=== PATIENT | female | born 1960 | race Caucasian/White ===

== ENCOUNTER 2016-05-26 23:33 | Emergency (ER) | payer OTHER ==
[2016-05-27 00:15] VITALS: TEMP 98.2; O2SAT 97
[2016-05-27] MEDS ORDERED: ALUMINUM & MAGNESIUM HYDROXIDE 30 ML UD PO ONE (00:48)
--- NOTE | 2016-05-27 00:49 | ED.PDOC ---
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 SHE WOULD LIKE MAALOX FOR HER STOMACH BUT NO M.O.M. SINCE SHE IS ALLERGIC TO IT. - History of Present Illness Severity: mild Allergies/Adverse Reactions: Allergies Codeine Allergy (Unknown, Verified 03/02/15 23:43) LISTED ADM. 06/04/13@1845 Digoxin Allergy (Unknown, Verified 03/02/15 23:43) LISTED ADM.06/04/13@1845 Flu Virus Vaccine Allergy (Unknown, Verified 03/02/15 23:43) LISTED ADM.06/04/13@1845 Pneumococcal Vaccine Allergy (Unknown, Verified 03/02/15 23:43) LISTED ADM.06/04/13@1845 Acetaminophen [From Vicodin] Allergy (Verified 03/02/15 23:43) Aspirin [From Acetaminophen Fortified] Allergy (Verified 03/02/15 23:43) Caffeine [From Acetaminophen Fortified] Allergy (Verified 03/02/15 23:43) Esomeprazole [From Nexium] Allergy (Verified 03/02/15 23:43) Hydrocodone [From Vicodin] Allergy (Verified 03/02/15 23:43) Ibuprofen Allergy (Verified 03/02/15 23:43) NSAIDs Allergy (Verified 06/03/12 08:27) Opium Allergy (Verified 06/03/12 08:27) Anaphylaxis Prednisone Allergy (Verified 06/03/12 08:27) Tolmetin Allergy (Verified 06/03/12 08:27) Pantoprazole [From Protonix] Adverse Reaction (Verified 10/28/13 06:04) cyclobenzoprine Allergy (Uncoded 05/04/12 17:34) Home Medications: Ambulatory Orders Acyclovir [Zovirax] 400 mg PO QID #28 tab 10/28/13 Lyrica 04/16/15 Review of Systems - Review of Systems Constitutional: States: no symptoms reported EENTM: States: no symptoms reported Respiratory: States: no symptoms reported Cardiology: States: no symptoms reported. Denies: chest pain, palpitations Gastrointestinal/Abdominal: States: other - DYSPEPSIA. Denies: abdominal pain, constipation, diarrhea, nausea, vomiting Genitourinary: States: no symptoms reported Musculoskeletal: States: no symptoms reported Skin: States: no symptoms reported Neurological: States: no symptoms reported Endocrine: States: no symptoms reported Hematologic/Lymphatic: States: no symptoms reported All other Systems: Reviewed and Negative Past Medical History (General) - Patient Medical History Hx Stroke: No Hx Cardiac Disorders: Yes Hx Congestive Heart Failure: No Hx Pacemaker: No Hx Hypertension: Yes Hx Diabetes: No Hx Gastroesophageal Reflux: Yes Hx Cancer: No Hx MRSA: No Surgical History: cholecystectomy, Hysterectomy - Vaccination History Hx Tetanus, Diphtheria Vaccination: No Hx Influenza Vaccination: No Hx Pneumococcal Vaccination: No - Social History Hx Tobacco Use: No Hx Alcohol Use: No Hx Substance Use: No Hx Substance Use Treatment: No Hx Depression: No Hx Physical Abuse: No Hx Emotional Abuse: No - Female History Patient is a Female of Child Bearing Age (10 -59 yrs old): No Patient : No - Triage Comment ED Triage Comment: told her to take tumeric powder, used it this am, and thinks that could be causing some of her reflux problems Family Medical History - Family History Father Family History: No Known Living Status: Hx Family;Other: both of my parents had heart problems Physical Exam - Physical Exam General Appearance: Alert, No apparent distress Eye Exam: bilateral normal Ears, Nose, Throat: hearing grossly normal, normal ENT inspection Neck: non-tender, full range of motion Respiratory: chest non-tender, lungs clear Cardiovascular/Chest: normal peripheral pulses, regular rate, rhythm Peripheral Pulses: radial,right: 2+, radial,left: 2+ Gastrointestinal/Abdominal: normal bowel sounds, soft Extremity: normal range of motion, non-tender Neurologic: no motor/sensory deficits, alert, oriented x 3 Progress - Progress Progress: 05/27/16 00:53 ELEVATED BP - BP NL IN ER. DYSPEPSIA - GIVING MAALOX. ADVISED TO AVOID TURMERIC SINCE IT CAUSED DYSPEPSIA. Departure - Departure Clinical Impression: Dyspepsia Disposition: Discharge to Home or Self Care Condition: Good Departure Forms: ED Discharge - Pt. Copy, Patient Portal Self Enrollment Diet: resume usual diet Activity: increase activity as tolerated Referrals: [Primary Care Provider] - 1-2 Weeks Home Medications: Ambulatory Orders Acyclovir [Zovirax] 400 mg PO QID #28 tab 07/10/14 Lyrica 04/16/15 Additional Instructions: Please avoid Turmeric since it causes stomach upset.
[2016-05-27 01:11] VITALS: BP 104/69
== END 2016-05-27 01:11 | disposition home or self-care (01) ==
LOC: ER 23:33
DX: R10.13 Epigastric pain (principal); I10 Essential (primary) hypertension; K21.9 Gastro-esophageal reflux disease without esophagitis; Z88.6 Allergy status to analgesic agent; Z88.8 Allergy status to other drugs, medicaments and biological substances; Z79.899 Other long term (current) drug therapy

== ENCOUNTER 2016-10-18 22:12 | Emergency (ER) | payer OTHER ==
--- NOTE | 2016-10-18 22:51 | ED.PDOC ---
History of Present Illness - General Chief Complaint: Skin/Abrasion/Tear Stated Complaint: Painful spot on L buttock Time Seen by Provider: 10/18/16 22:35 Source: patient, RN notes reviewed, Vital Signs reviewed Exam Limitations: no limitations - History of Present Illness Initial Comments: Patient comes in with concern that she has a spider bite on her left buttock. Since last night she has been having stabbing pain with burning. This morning she found a spider in her bed. Timing/Duration: yesterday Severity: mild Location: torso Improving Factors: nothing Worsening Factors: nothing Associated Symptoms: denies symptoms Allergies/Adverse Reactions: Allergies Codeine Allergy (Unknown, Verified 03/02/15 23:43) LISTED ADM. 06/04/13@1845 Digoxin Allergy (Unknown, Verified 03/02/15 23:43) LISTED ADM.06/04/13@1845 Flu Virus Vaccine Allergy (Unknown, Verified 03/02/15 23:43) LISTED ADM.06/04/13@1845 Pneumococcal Vaccine Allergy (Unknown, Verified 03/02/15 23:43) LISTED ADM.06/04/13@1845 Acetaminophen [From Vicodin] Allergy (Verified 03/02/15 23:43) Aspirin [From Acetaminophen Fortified] Allergy (Verified 03/02/15 23:43) Caffeine [From Acetaminophen Fortified] Allergy (Verified 03/02/15 23:43) Esomeprazole [From Nexium] Allergy (Verified 03/02/15 23:43) Hydrocodone [From Vicodin] Allergy (Verified 03/02/15 23:43) Ibuprofen Allergy (Verified 03/02/15 23:43) NSAIDs Allergy (Verified 06/03/12 08:27) Opium Allergy (Verified 06/03/12 08:27) Anaphylaxis Prednisone Allergy (Verified 06/03/12 08:27) Tolmetin Allergy (Verified 06/03/12 08:27) Pantoprazole [From Protonix] Adverse Reaction (Verified 10/28/13 06:04) cyclobenzoprine Allergy (Uncoded 05/04/12 17:34) Home Medications: Ambulatory Orders Acyclovir [Zovirax] 400 mg PO QID #28 tab 10/28/13 Lyrica 04/16/15 Valacyclovir HCl [Valtrex] 1 gm PO TID #21 tab 06/30/17 Review of Systems - Review of Systems Constitutional: States: no symptoms reported Respiratory: States: no symptoms reported Cardiology: States: no symptoms reported Gastrointestinal/Abdominal: States: no symptoms reported Musculoskeletal: States: no symptoms reported Skin: States: see HPI All other Systems: No Change from Baseline Past Medical History (General) - Patient Medical History Hx Stroke: No Hx Cardiac Disorders: Yes Hx Congestive Heart Failure: No Hx Pacemaker: No Hx Hypertension: Yes Hx Diabetes: No Hx Gastroesophageal Reflux: Yes Hx Cancer: No Hx MRSA: No - Vaccination History Hx Tetanus, Diphtheria Vaccination: No Hx Influenza Vaccination: No Hx Pneumococcal Vaccination: No - Social History Hx Tobacco Use: No Hx Alcohol Use: No Hx Substance Use: No Hx Substance Use Treatment: No Hx Depression: No Hx Physical Abuse: No Hx Emotional Abuse: No - Female History Patient : No Family Medical History - Family History Father Family History: No Known Living Status: Hx Family;Other: both of my parents had heart problems Physical Exam - Physical Exam General Appearance: Alert, Comfortable, No apparent distress, Well Developed, Well Groomed, Well Hydrated, Well Nourished Respiratory: no respiratory distress Extremity: normal range of motion, non-tender, normal inspection Neurologic: alert, normal mood/affect, oriented x 3 Skin Exam: warm/dry, normal color Skin Problem Location: other - left buttock Skin Character: erythema, lesion, patchy, tenderness, vesicular, other - shingles patch on L buttock Progress - Progress Progress: 10/18/16 22:52 Patient reports she has Acyclovir at home and has been taking it BID. Will have her increase dose to 800mg TID. Can't give steroids due to allergy 10/18/16 22:53 10/18/16 22:55 Departure - Departure Clinical Impression: Shingles Qualifiers: Herpes zoster complications: without complications Qualified Code(s): B02.9 - Zoster without complications Time of Disposition: 22:55 Disposition: Discharge to Home or Self Care Condition: Good Departure Forms: ED Discharge - Pt. Copy, Patient Portal Self Enrollment Instructions: DI for Shingles Diet: resume usual diet Activity: increase activity as tolerated Referrals: Kim Willis DO [Primary Care Provider] - 1-2 Weeks Prescriptions: Valacyclovir HCl [Valtrex] 1 gm PO TID #21 tab Home Medications: Ambulatory Orders Acyclovir [Zovirax] 400 mg PO QID #28 tab 10/28/13 Lyrica 04/16/15 Valacyclovir HCl [Valtrex] 1 gm PO TID #21 tab 10/18/16
[2016-10-18 23:28] VITALS: BP 139/81; TEMP 97.9; O2SAT 97
== END 2016-10-18 23:20 | disposition home or self-care (01) ==
LOC: ER 22:12
DX: B02.9 Zoster without complications (principal); I10 Essential (primary) hypertension; K21.9 Gastro-esophageal reflux disease without esophagitis; Z88.6 Allergy status to analgesic agent; Z88.7 Allergy status to serum and vaccine; Z88.8 Allergy status to other drugs, medicaments and biological substances; Z79.899 Other long term (current) drug therapy

== ENCOUNTER 2017-02-14 01:13 | Emergency (ER) | payer OTHER ==
[2017-02-14 01:33] VITALS: TEMP 97.2; O2SAT 96
--- NOTE | 2017-02-14 01:44 | ED.PDOC ---
History of Present Illness - General Chief Complaint: Eye Problems Stated Complaint: Foreign Body Eyes Bilaterally Time Seen by Provider: 02/14/17 01:15 Source: patient, RN notes reviewed, Vital Signs reviewed Exam Limitations: no limitations - History of Present Illness Initial Comments: Patient comes in with c/o of foreign body sensation in L eye. Both eyes are bothering her but the L is worse. Yesterday she was replacing a piece of plastic over a window that is being repaired. When she was hammering she felt something go into her eyes. + sensitivity to light. No visual changes. Timing/Duration: yesterday - evening Severity: mild EENT Location: eye (R), eye (L) Prearrival Treatment: no prearrival treatment Improving Factors: nothing Worsening Factors: nothing Associated Symptoms: denies symptoms Allergies/Adverse Reactions: Allergies Codeine Allergy (Unknown, Verified 03/02/15 23:43) LISTED ADM. 06/04/13@1845 Digoxin Allergy (Unknown, Verified 03/02/15 23:43) LISTED ADM.06/04/13@1845 Flu Virus Vaccine Allergy (Unknown, Verified 03/02/15 23:43) LISTED ADM.06/04/13@1845 Pneumococcal Vaccine Allergy (Unknown, Verified 03/02/15 23:43) LISTED ADM.06/04/13@1845 Acetaminophen [From Vicodin] Allergy (Verified 03/02/15 23:43) Aspirin [From Acetaminophen Fortified] Allergy (Verified 03/02/15 23:43) Caffeine [From Acetaminophen Fortified] Allergy (Verified 03/02/15 23:43) Esomeprazole [From Nexium] Allergy (Verified 03/02/15 23:43) Hydrocodone [From Vicodin] Allergy (Verified 03/02/15 23:43) Ibuprofen Allergy (Verified 03/02/15 23:43) NSAIDs Allergy (Verified 06/03/12 08:27) Opium Allergy (Verified 06/03/12 08:27) Anaphylaxis Prednisone Allergy (Verified 06/03/12 08:27) Tolmetin Allergy (Verified 06/03/12 08:27) Pantoprazole [From Protonix] Adverse Reaction (Verified 10/28/13 06:04) cyclobenzoprine Allergy (Uncoded 05/04/12 17:34) Home Medications: Ambulatory Orders Acyclovir [Zovirax] 400 mg PO TID 10/18/16 Review of Systems - Review of Systems Constitutional: States: no symptoms reported EENTM: States: see HPI, eye pain, tearing. Denies: blurred vision, double vision Respiratory: States: no symptoms reported Cardiology: States: no symptoms reported Skin: States: no symptoms reported Neurological: States: no symptoms reported All other Systems: No Change from Baseline Past Medical History (General) - Patient Medical History Hx Stroke: No Hx Cardiac Disorders: Yes - Hx A-fib Hx Congestive Heart Failure: No Hx Pacemaker: No Hx Hypertension: Yes Hx Diabetes: No Hx Gastroesophageal Reflux: Yes Hx Cancer: No Hx MRSA: No Surgical History: cholecystectomy, Hysterectomy, other - Vaccination History Hx Tetanus, Diphtheria Vaccination: No Hx Influenza Vaccination: No Hx Pneumococcal Vaccination: No - Social History Hx Tobacco Use: No Hx Chewing Tobacco Use: No Hx Alcohol Use: No Hx Substance Use: No Hx Substance Use Treatment: No Hx Depression: No Hx Physical Abuse: No Hx Emotional Abuse: No Hx Suspected Abuse: No - Female History Patient : No Family Medical History - Family History Father Family History: No Known Living Status: Hx Family;Other: both of my parents had heart problems Physical Exam - Physical Exam General Appearance: Alert, Comfortable, No apparent distress, Well Developed, Well Groomed, Well Hydrated, Well Nourished Eye Exam: bilateral other - Both eyes examined with fluroscein - L eye has an abrasion w/ dye uptake on upper aspect of cornea, small foreign body noted and removed from L upper, inner eyelid. R eye - normal Neck: supple, normal inspection Neurologic: alert, normal mood/affect, oriented x 3 Skin Exam: normal color, warm/dry Comments: Vital Signs 02/14/17 01:28 Temperature 97.2 F L Pulse Rate [ 85 left] Respiratory 18 Rate Blood Pressure 124/73 [left] O2 Sat by Pulse 96 Oximetry Visual Acuity: L 20/70, R 20/30 Procedures - Eye Procedure Left Alcaine Drops Administered: Yes FB Removal from Eye Procedure: with cottin-tipped swab - small FB up under upper eyelid Cyclogel 2 Drops Administered: No Antibiotic Oinment/Drps Admin: Gentamycin Progress: Patient tolerated well Departure - Departure Clinical Impression: Foreign body of eyelid, left Corneal abrasion Qualifiers: Encounter type: initial encounter Laterality: left Qualified Code(s): S05.02XA - Injury of conjunctiva and corneal abrasion without foreign body, left eye, initial encounter Time of Disposition: 01:49 Disposition: Discharge to Home or Self Care Condition: Good Departure Forms: ED Discharge - Pt. Copy, Patient Portal Self Enrollment Instructions: DI for Corneal Abrasion Diet: resume usual diet Activity: increase activity as tolerated Referrals: Kim Willis DO [Primary Care Provider] - 1-2 Weeks Home Medications: Ambulatory Orders Acyclovir [Zovirax] 400 mg PO TID 10/18/16 Additional Instructions: Use Gentamycin drops 4X/day for 7 days.
[2017-02-14 02:00] VITALS: BP 126/71
[2017-02-14] MEDS ORDERED: GENTAMICIN 0.3% OPHTH SOL 1 DROP ONE (09:00)
[2017-02-14] MEDS ORDERED: TETRACAINE HCL 0.5% OPHTH SOL 1 DROP ONE (09:00)
== END 2017-02-14 02:00 | disposition home or self-care (01) ==
LOC: ER 01:13
DX: T15.02XA Foreign body in cornea, left eye, initial encounter (principal); I48.91 Unspecified atrial fibrillation; I10 Essential (primary) hypertension; Z79.899 Other long term (current) drug therapy; Z88.8 Allergy status to other drugs, medicaments and biological substances; Z88.6 Allergy status to analgesic agent; Z88.7 Allergy status to serum and vaccine; X58.XXXA Exposure to other specified factors, initial encounter; Y92.9 Unspecified place or not applicable

== ENCOUNTER 2017-06-06 01:40 | Emergency (ER) | payer OTHER ==
[2017-06-06 02:06] VITALS: O2SAT 99
[2017-06-06] MEDS ORDERED: ALUMINUM & MAGNESIUM HYDROXIDE 30 ML UD PO ONE (02:21)
--- NOTE | 2017-06-06 02:26 | ED.PDOC ---
History of Present Illness - General Chief Complaint: General Stated Complaint: right arm numbness Time Seen by Provider: 06/06/17 02:07 Source: patient Exam Limitations: no limitations - History of Present Illness Initial Comments: The patient is a 56-year-old female presenting to emergency room secondary to discomfort starting at around 9 PM tonight. The patient is having some substernal chest discomfort with radiation down the right arm. No vomiting. Questionable mild nausea. Pain is worse with movement. Pain is worse with palpation. She reports that occasionally she feels like her right arm is asleep. No palpitations. She does have a history of atrial fibrillation but underwent an ablation this and has not had problems since. The patient did take some coconut oil and honey earlier in the night as part of a cleansing. The patient does have more than 16 drug allergies listed. She is rather eccentric. No history of any coronary artery disease, hypercholesterolemia or long-term hypertension. She is rather anxious. She is alert and oriented and in no obvious physical distress. She reports allergies to aspirin. She was apparently fallen on a very large person a few days ago and has had some abdominal pain since. Timing/Duration: 4-6 hours Severity: mild Improving Factors: nothing Worsening Factors: movement Associated Symptoms: chest pain Allergies/Adverse Reactions: Allergies Codeine Allergy (Unknown, Verified 04/25/17 10:29) Unknown LISTED ADM. 06/04/13@1845 04/25/17 - States elevated HR Digoxin Allergy (Unknown, Verified 04/25/17 10:29) Unknown LISTED ADM.06/04/13@1845 04/25/17 - Swelling of throat, increased HR Flu Virus Vaccine Allergy (Unknown, Verified 04/25/17 10:29) Unknown LISTED ADM.06/04/13@1845 Pneumococcal Vaccine Allergy (Unknown, Verified 04/25/17 10:29) Unknown LISTED ADM.06/04/13@1845 Acetaminophen [From Vicodin] Allergy (Verified 04/25/17 10:29) Anaphylaxis Stops patient from breathing Aspirin [From Acetaminophen Fortified] Allergy (Verified 04/25/17 10:29) Anaphylaxis Caffeine [From Acetaminophen Fortified] Allergy (Verified 04/25/17 10:29) Other Elevates HR Esomeprazole [From Nexium] Allergy (Verified 04/25/17 10:29) Other Elevates HR Hydrocodone [From Vicodin] Allergy (Verified 04/25/17 10:29) Anaphylaxis Ibuprofen Allergy (Verified 04/25/17 10:29) Other Elevates HR NSAIDs Allergy (Verified 04/25/17 10:29) Anaphylaxis Opium Allergy (Verified 06/03/12 08:27) Anaphylaxis Prednisone Allergy (Verified 04/25/17 10:29) Other Elevates HR Tolmetin Allergy (Verified 04/25/17 10:29) Anaphylaxis Pantoprazole [From Protonix] Adverse Reaction (Verified 04/25/17 10:29) Other cyclobenzoprine Allergy (Uncoded 04/25/17 10:29) Other Home Medications: Ambulatory Orders Acyclovir [Zovirax] 400 mg PO TID 10/18/16 Clindamycin HCl 300 mg PO Q8H #20 cap 04/25/17 Pregabalin [Lyrica] 25 mg PO BID 04/25/17 Review of Systems - Review of Systems Constitutional: States: malaise, weakness - generalized EENTM: States: no symptoms reported Respiratory: States: no symptoms reported Cardiology: States: chest pain Gastrointestinal/Abdominal: States: abdominal pain, nausea - mild Musculoskeletal: States: see HPI, other - the patient does have diffuse muscle pain and soreness. This is long-standing. She has does have long-standing chronic pain. Skin: States: no symptoms reported Neurological: States: anxiety Endocrine: States: no symptoms reported All other Systems: No Change from Baseline Past Medical History (General) - Patient Medical History Hx Stroke: No Hx Cardiac Disorders: Yes - A fib Hx Congestive Heart Failure: No Hx Pacemaker: No Hx Hypertension: Yes Hx Diabetes: No Hx Gastroesophageal Reflux: Yes Hx Cancer: No Hx MRSA: No Surgical History: cholecystectomy, Hysterectomy - Vaccination History Hx Tetanus, Diphtheria Vaccination: Yes Hx Influenza Vaccination: No Hx Pneumococcal Vaccination: No - Social History Hx Tobacco Use: No Hx Chewing Tobacco Use: No Hx Alcohol Use: No Hx Substance Use: No Hx Substance Use Treatment: No Hx Depression: No Hx Physical Abuse: No Hx Emotional Abuse: No Hx Suspected Abuse: No - Female History Patient is a Female of Child Bearing Age (10 -59 yrs old): No Patient : No Family Medical History - Family History Father Family History: No Known Living Status: Hx Family;Other: both of my parents had heart problems Physical Exam - Physical Exam General Appearance: Alert, Anxious, No apparent distress Eye Exam: bilateral normal Ears, Nose, Throat: hearing grossly normal, normal ENT inspection, normal pharynx Neck: non-tender, full range of motion, supple, normal inspection Respiratory: lungs clear, normal breath sounds, no respiratory distress, no accessory muscle use, other - chest wall is diffusely uncomfortable to palpation Cardiovascular/Chest: normal peripheral pulses, regular rate, rhythm, no edema Peripheral Pulses: radial,right: 2+, radial,left: 2+, dorsalis pedis,right: 2+, dorsalis pedis,left: 2+ Gastrointestinal/Abdominal: soft, other - diffusely uncomfortable to palpation but no palpable masses and no definite rebound or peritoneal signs. 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 Skin Exam: normal color Comments: Vital Signs - 24 hr 06/06/17 01:45 Temperature 98.3 F Pulse Rate [ 100 H left] Respiratory 18 Rate Blood Pressure 150/76 [left] O2 Sat by Pulse 99 Oximetry EKG shows normal sinus rhythm with a rate of 100 bpm. [place] is within normal limits. She does have a right bundle branch block. There is very very mild ST segment depression in leads 2, 3, aVF, V5 and V6. This depression is less than 1 mm and was present on her EKG from 2 or 3 years ago. Progress - Progress Progress: 06/06/17 06:11 the patient is a 56-year-old female presenting to the emergency room with atypical chest pain symptoms. She is also having some abdominal pain. I do suspect that she has having some gastritis with referred pain. EKG and 2 sets of cardiac enzymes with the latter being more than 8 hours after the onset of symptoms failed to show any significant acute changes consistent with acute ischemia. Symptoms did improve with Maalox. The patient should consider avoiding coconut oil or coconut extract for the next couple of weeks in order to allow her stomach to heal. 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 she did have borderline hypokalemia and this does need to be followed. She did receive a dose here today. Additionally her TSH is moderately elevated at around 7. This needs to be followed with her primary care doctor in the near future to determine if the patient warrants additional testing. ER warnings were given for any significant worsening. she should follow up with her primary care doctor early next week. - Results/Orders Results/Orders: Laboratory Tests 06/06/17 06/06/17 06/06/17 02:30 02:30 02:30 WBC 6.9 RBC 3.77 L Hgb 12.2 Hct 35.5 L MCV 94.2 MCH 32.3 H MCHC 34.4 RDW 12.4 Plt Count 230 MPV 8.0 Absolute Neuts (auto) 4.50 Absolute Lymphs (auto) 1.80 Absolute Monos (auto) 0.50 Absolute Eos (auto) 0.10 Absolute Basos (auto) 0.00 Neutrophils % 64.6 Lymphocytes % 25.2 Monocytes % 7.9 Eosinophils % 1.9 Basophils % 0.4 ESR PT 11.0 INR 0.970 PTT (SP) 33.9 Sodium 136 Potassium 3.5 L Chloride 103 Carbon Dioxide 22 Anion Gap 14.5 BUN 13 Creatinine 0.57 L BUN/Creatinine Ratio 22.8 H Random Glucose 133 H Serum Osmolality 274.0 L Calcium 9.3 Magnesium 2.1 Total Bilirubin 0.5 AST 27 ALT 21 Alkaline Phosphatase 77 Creatine Kinase 55 CK-MB (CK-2) 1.3 CK-MB (CK-2) % Troponin I < 0.02 C-Reactive Protein B-Natriuretic Peptide 30.5 Serum Total Protein 6.9 Albumin 3.8 Globulin 3.1 Albumin/Globulin Ratio 1.2 Amylase 51 Lipase 46 TSH 6.94 H Urine Color Urine Appearance Urine pH Ur Specific [place] Urine Protein Urine Glucose (UA) Urine Ketones Urine Blood Urine Nitrite Urine Bilirubin Urine Urobilinogen Ur Leukocyte Esterase Urine RBC Urine WBC Ur Epithelial Cells Urine Bacteria 06/06/17 06/06/17 06/06/17 02:30 02:30 02:54 WBC RBC Hgb Hct MCV MCH MCHC RDW Plt Count MPV Absolute Neuts (auto) Absolute Lymphs (auto) Absolute Monos (auto) Absolute Eos (auto) Absolute Basos (auto) Neutrophils % Lymphocytes % Monocytes % Eosinophils % Basophils % ESR 44 H PT INR PTT (SP) Sodium Potassium Chloride Carbon Dioxide Anion Gap BUN Creatinine BUN/Creatinine Ratio Random Glucose Serum Osmolality Calcium Magnesium Total Bilirubin AST ALT Alkaline Phosphatase Creatine Kinase CK-MB (CK-2) CK-MB (CK-2) % Troponin I C-Reactive Protein 0.6 B-Natriuretic Peptide Serum Total Protein Albumin Globulin Albumin/Globulin Ratio Amylase Lipase TSH Urine Color Yellow Urine Appearance Clear Urine pH 6.5 Ur Specific [place] 1.010 Urine Protein Negative Urine Glucose (UA) Negative Urine Ketones Negative Urine Blood Trace-intact H Urine Nitrite Negative Urine Bilirubin Negative Urine Urobilinogen 0.2 Ur Leukocyte Esterase Negative Urine RBC 0-1 Urine WBC 0-1 Ur Epithelial Cells 0 Urine Bacteria Rare 06/06/17 05:00 WBC RBC Hgb Hct MCV MCH MCHC RDW Plt Count MPV Absolute Neuts (auto) Absolute Lymphs (auto) Absolute Monos (auto) Absolute Eos (auto) Absolute Basos (auto) Neutrophils % Lymphocytes % Monocytes % Eosinophils % Basophils % ESR PT INR PTT (SP) Sodium Potassium Chloride Carbon Dioxide Anion Gap BUN Creatinine BUN/Creatinine Ratio Random Glucose Serum Osmolality Calcium Magnesium Total Bilirubin AST ALT Alkaline Phosphatase Creatine Kinase 52 CK-MB (CK-2) 1.1 CK-MB (CK-2) % Not Reportable Troponin I < 0.02 C-Reactive Protein B-Natriuretic Peptide Serum Total Protein Albumin Globulin Albumin/Globulin Ratio Amylase Lipase TSH Urine Color Urine Appearance Urine pH Ur Specific [place] Urine Protein Urine Glucose (UA) Urine Ketones Urine Blood Urine Nitrite Urine Bilirubin Urine Urobilinogen Ur Leukocyte Esterase Urine RBC Urine WBC Ur Epithelial Cells Urine Bacteria chest x-ray shows no acute pathology. Departure - Departure Clinical Impression: Atypical chest pain Gastritis Qualifiers: Gastritis type: unspecified gastritis Chronicity: acute Gastritis bleeding: without bleeding Qualified Code(s): K29.00 - Acute gastritis without bleeding Disposition: Discharge to Home or Self Care Condition: Fair Departure Forms: ED Discharge - Pt. Copy, Patient Portal Self Enrollment Instructions: DI for Gastritis Diet: bland diet Activity: increase activity as tolerated Referrals: Kim Willis DO [Primary Care Provider] - 1-5 Days Home Medications: Ambulatory Orders Acyclovir [Zovirax] 400 mg PO TID 10/18/16 Clindamycin HCl 300 mg PO Q8H #20 cap 04/25/17 Pregabalin [Lyrica] 25 mg PO BID 04/25/17 Additional Instructions: the patient is a 56-year-old female presenting to the emergency room with atypical chest pain symptoms. She is also having some abdominal pain. I do suspect that she has having some gastritis with referred pain. EKG and 2 sets of cardiac enzymes with the latter being more than 8 hours after the onset of symptoms failed to show any significant acute changes consistent with acute ischemia. Symptoms did improve with Maalox. The patient should consider avoiding coconut oil or coconut extract for the next couple of weeks in order to allow her stomach to heal. 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 she did have borderline hypokalemia and this does need to be followed. She did receive a dose here today. Additionally her TSH is moderately elevated at around 7. This needs to be followed with her primary care doctor in the near future to determine if the patient warrants additional testing. ER warnings were given for any significant worsening. she should follow up with her primary care doctor early next week.
--- NOTE | 2017-06-06 02:54 | RAD ---
EXAM: Two view chest. INDICATION: Chest pain. COMPARISON: Chest x-ray: 06/08/2012. FINDINGS: Cardiac silhouette: Unremarkable. Miri: Unremarkable. Lobar consolidation: None. Pleural effusion: None. Pneumothorax: None. Other: None. Bones: Unremarkable. Other: None. IMPRESSION: 1. No acute cardiopulmonary process. Electronically signed by: Luís Carrillo MD 06/06/2017 2:53 AM [facility] Workstation: [id number]
[2017-06-06] MEDS ORDERED: POTASSIUM CHLORIDE ELIXIR 20 MEQ/15 ML UD PO ONE (03:43)
[2017-06-06 06:28] VITALS: BP 102/53; TEMP 98.5
== END 2017-06-06 06:27 | disposition home or self-care (01) ==
LOC: ER 01:40
DX: K29.00 Acute gastritis without bleeding (principal); R07.89 Other chest pain; I48.91 Unspecified atrial fibrillation; K21.9 Gastro-esophageal reflux disease without esophagitis

== ENCOUNTER 2018-06-16 14:50 | Emergency (ER) | payer OTHER ==
[2018-06-16 15:11] VITALS: O2SAT 97
--- NOTE | 2018-06-16 15:43 | ED.PDOC ---
History of Present Illness - General Chief Complaint: Fever Stated Complaint: Fever, Couhg Time Seen by Provider: 06/16/18 15:03 Source: patient Exam Limitations: no limitations - History of Present Illness Initial Comments: Vandana Mendoza 57 y/o female stated that she had non productive cough 2 days ago then had fever this am T-101 at home.No ill contact ,has allergy to flu v accine. Timing/Duration: other - see hpi Severity: moderate Improving Factors: nothing Worsening Factors: nothing Associated Symptoms: cough Allergies/Adverse Reactions: Allergies Codeine Allergy (Unknown, Verified 04/25/17 10:29) Unknown LISTED ADM. 06/04/13@1845 04/25/17 - States elevated HR Digoxin Allergy (Unknown, Verified 04/25/17 10:29) Unknown LISTED ADM.06/04/13@1845 04/25/17 - Swelling of throat, increased HR Flu Virus Vaccine Allergy (Unknown, Verified 04/25/17 10:29) Unknown LISTED ADM.06/04/13@1845 Pneumococcal Vaccine Allergy (Unknown, Verified 04/25/17 10:29) Unknown LISTED ADM.06/04/13@1845 Acetaminophen [From Vicodin] Allergy (Verified 04/25/17 10:29) Anaphylaxis Stops patient from breathing Aspirin [From Acetaminophen Fortified] Allergy (Verified 04/25/17 10:29) Anaphylaxis Caffeine [From Acetaminophen Fortified] Allergy (Verified 04/25/17 10:29) Other Elevates HR Esomeprazole [From Nexium] Allergy (Verified 04/25/17 10:29) Other Elevates HR Hydrocodone [From Vicodin] Allergy (Verified 04/25/17 10:29) Anaphylaxis Ibuprofen Allergy (Verified 04/25/17 10:29) Other Elevates HR NSAIDs Allergy (Verified 04/25/17 10:29) Anaphylaxis Opium Allergy (Verified 06/03/12 08:27) Anaphylaxis Prednisone Allergy (Verified 04/25/17 10:29) Other Elevates HR Tolmetin Allergy (Verified 04/25/17 10:29) Anaphylaxis Pantoprazole [From Protonix] Adverse Reaction (Verified 04/25/17 10:29) Other cyclobenzoprine Allergy (Uncoded 04/25/17 10:29) Other Home Medications: Ambulatory Orders Acyclovir [Zovirax] 400 mg PO TID 10/18/16 Pregabalin [Lyrica] 25 mg PO BID 04/25/17 Oseltamivir Capsule [Tamiflu] 75 mg PO BID 5 Days #10 capsule 06/16/18 Potassium Chloride [Klor-Con] 20 meq PO DAILY 06/16/18 Review of Systems - Review of Systems Constitutional: States: no symptoms reported EENTM: States: no symptoms reported Respiratory: States: cough Cardiology: States: no symptoms reported Gastrointestinal/Abdominal: States: no symptoms reported Musculoskeletal: States: no symptoms reported Skin: States: no symptoms reported Past Medical History (General) - Patient Medical History Hx Stroke: No Hx Cardiac Disorders: Yes - A fib Hx Congestive Heart Failure: No Hx Pacemaker: No Hx Hypertension: Yes Hx Diabetes: No Hx Gastroesophageal Reflux: Yes Hx Cancer: No Hx MRSA: No Hx Other PMH: Yes - ankylosing spondylitis,glaucoma,chronic herpes zoster Surgical History: cholecystectomy, other - hysterectomy,cataract,cardiac ablation-a.fib - Vaccination History Hx Tetanus, Diphtheria Vaccination: Yes Hx Influenza Vaccination: No Hx Pneumococcal Vaccination: No - Social History Hx Tobacco Use: Yes Hx Chewing Tobacco Use: No Hx Alcohol Use: No Hx Substance Use: No Hx Substance Use Treatment: No Hx Depression: No Hx Physical Abuse: No Hx Emotional Abuse: No Hx Suspected Abuse: No - Female History Patient : No Family Medical History - Family History Father Family History: No Known Living Status: Hx Family;Other: both of my parents had heart problems;Mom-ankylosing spondylitis Physical Exam - Physical Exam General Appearance: Alert, Comfortable, No apparent distress Eye Exam: bilateral normal Ears, Nose, Throat: hearing grossly normal, normal ENT inspection, normal pharynx Neck: non-tender, supple, normal inspection Respiratory: chest non-tender, lungs clear, normal breath sounds, no respiratory distress Cardiovascular/Chest: normal peripheral pulses, regular rate, rhythm, no murmur Peripheral Pulses: radial,right: 2+, radial,left: 2+ Gastrointestinal/Abdominal: non tender, soft, no organomegaly Back Exam: no CVA tenderness, no vertebral tenderness Extremity: no pedal edema, no calf tenderness Neurologic: alert, oriented x 3 Progress - Progress Progress: 06/16/18 15:58 Vital Signs 06/16/18 15:04 Temperature 101.5 F H Pulse Rate [ 102 H Left Brachial] Respiratory 18 Rate Blood Pressure 128/70 [Left Arm] O2 Sat by Pulse 97 Oximetry - Results/Orders Results/Orders: Vital Signs - 8 hr 06/16/18 06/16/18 15:04 16:18 Temperature 101.5 F H 101.5 F H Pulse Rate [ 102 H Left Brachial] Respiratory 18 Rate Blood Pressure 128/70 [Left Arm] O2 Sat by Pulse 97 Oximetry - EKG/XRAY/CT XRAY: chest - no acute abnormalities Departure - Departure Clinical Impression: Influenza A with respiratory manifestations Time of Disposition: 16:46 Disposition: Discharge to Home or Self Care Condition: Fair Departure Forms: ED Discharge - Pt. Copy, Patient Portal Self Enrollment Instructions: Flu, Adult (DC), Flu Referrals: Kim Willis DO [Primary Care Provider] - 1-2 Weeks Prescriptions: Oseltamivir Capsule [Tamiflu] 75 mg PO BID 5 Days #10 capsule Home Medications: Ambulatory Orders Acyclovir [Zovirax] 400 mg PO TID 10/18/16 Pregabalin [Lyrica] 25 mg PO BID 04/25/17 Oseltamivir Capsule [Tamiflu] 75 mg PO BID 5 Days #10 capsule 06/16/18 Potassium Chloride [Klor-Con] 20 meq PO DAILY 06/16/18 Additional Instructions: May take over the counter DELSYM Liquid see direction on package insert for cough;Tylenol 500 mg every 6 hours for fever
--- NOTE | 2018-06-16 16:06 | RAD ---
EXAM DESCRIPTION: Chest,1 View CLINICAL HISTORY: cough COMPARISON: June 06, 2017 FINDINGS: The cardiomediastinal silhouette is unremarkable. There is no airspace consolidation or pleural effusion. The bronchovascular markings are within normal limits, and the lungs are not hyperinflated. There is no pneumothorax or acute fracture. IMPRESSION: Negative exam. Electronically signed by: Samson Conde MD 06/16/2018 4:03 PM [facility]
[2018-06-16 17:15] VITALS: BP 112/69; TEMP 102.4
== END 2018-06-16 17:15 | disposition home or self-care (01) ==
LOC: ER 14:50
DX: J10.1 Influenza due to other identified influenza virus with other respiratory manifestations (principal); I48.91 Unspecified atrial fibrillation; I10 Essential (primary) hypertension; K21.9 Gastro-esophageal reflux disease without esophagitis; Z87.891 Personal history of nicotine dependence; Z88.8 Allergy status to other drugs, medicaments and biological substances; Z88.6 Allergy status to analgesic agent; Z88.5 Allergy status to narcotic agent; Z79.899 Other long term (current) drug therapy; Z88.7 Allergy status to serum and vaccine

== ENCOUNTER 2018-07-12 00:47 | Emergency (ER) | payer OTHER ==
[2018-07-12] MEDS ORDERED: FAMOTIDINE 20 MG TAB PO ONE (01:22)
[2018-07-12] MEDS ORDERED: ONDANSETRON ODT 8 MG TAB SL ONE (01:22)
[2018-07-12] MEDS ORDERED: ALUMINUM & MAGNESIUM HYDROXIDE 30 ML UD PO ONE (01:23)
--- NOTE | 2018-07-12 01:26 | ED.PDOC ---
History of Present Illness - General Chief Complaint: GI Problem Stated Complaint: Started Levaquin now having diarrhea Time Seen by Provider: 07/12/18 00:56 Source: patient Exam Limitations: no limitations - History of Present Illness Initial Comments: the patient is a 57-year-old female presenting to the emergency room secondary to complaints of nausea and stomach cramping along with some diarrhea approximately 36 hours after starting Levaquin for a upper respiratory infection. No actual vomiting and no blood in the stool. Severity: moderate Improving Factors: nothing Worsening Factors: nothing Allergies/Adverse Reactions: Allergies Codeine Allergy (Unknown, Verified 04/25/17 10:29) Unknown LISTED ADM. 06/04/13@1845 04/25/17 - States elevated HR Digoxin Allergy (Unknown, Verified 04/25/17 10:29) Unknown LISTED ADM.06/04/13@1845 04/25/17 - Swelling of throat, increased HR Flu Virus Vaccine Allergy (Unknown, Verified 04/25/17 10:29) Unknown LISTED ADM.06/04/13@1845 Pneumococcal Vaccine Allergy (Unknown, Verified 04/25/17 10:29) Unknown LISTED ADM.06/04/13@1845 Acetaminophen [From Vicodin] Allergy (Verified 04/25/17 10:29) Anaphylaxis Stops patient from breathing Aspirin [From Acetaminophen Fortified] Allergy (Verified 04/25/17 10:29) Anaphylaxis Caffeine [From Acetaminophen Fortified] Allergy (Verified 04/25/17 10:29) Other Elevates HR Esomeprazole [From Nexium] Allergy (Verified 04/25/17 10:29) Other Elevates HR Hydrocodone [From Vicodin] Allergy (Verified 04/25/17 10:29) Anaphylaxis Ibuprofen Allergy (Verified 04/25/17 10:29) Other Elevates HR NSAIDs Allergy (Verified 04/25/17 10:29) Anaphylaxis Opium Allergy (Verified 06/03/12 08:27) Anaphylaxis Prednisone Allergy (Verified 04/25/17 10:29) Other Elevates HR Tolmetin Allergy (Verified 04/25/17 10:29) Anaphylaxis Pantoprazole [From Protonix] Adverse Reaction (Verified 04/25/17 10:29) Other cyclobenzoprine Allergy (Uncoded 04/25/17 10:29) Other Home Medications: Ambulatory Orders Acyclovir [Zovirax] 400 mg PO TID 10/18/16 Pregabalin [Lyrica] 25 mg PO BID 04/25/17 Oseltamivir Capsule [Tamiflu] 75 mg PO BID 5 Days #10 capsule 06/16/18 Potassium Chloride [Klor-Con] 20 meq PO DAILY 06/16/18 Famotidine [Pepcid Tab] 20 mg PO BID #30 tab 07/12/18 Ondansetron Odt [Zofran ODT] 4 mg PO Q8HR PRN #5 tab 07/12/18 Review of Systems - Review of Systems Constitutional: States: no symptoms reported EENTM: States: no symptoms reported Respiratory: States: no symptoms reported Cardiology: States: no symptoms reported Gastrointestinal/Abdominal: States: abdominal pain, diarrhea, nausea Genitourinary: States: no symptoms reported Musculoskeletal: States: no symptoms reported Skin: States: no symptoms reported Neurological: States: no symptoms reported Endocrine: States: no symptoms reported All other Systems: No Change from Baseline Past Medical History (General) - Patient Medical History Hx Stroke: No Hx Cardiac Disorders: Yes - A fib Hx Congestive Heart Failure: No Hx Pacemaker: No Hx Hypertension: Yes Hx Diabetes: No Hx Gastroesophageal Reflux: Yes Hx Cancer: No Hx MRSA: No - Vaccination History Hx Tetanus, Diphtheria Vaccination: Yes Hx Influenza Vaccination: No Hx Pneumococcal Vaccination: No - Social History Hx Tobacco Use: Yes Hx Chewing Tobacco Use: No Hx Alcohol Use: No Hx Substance Use: No Hx Substance Use Treatment: No Hx Depression: No Hx Physical Abuse: No Hx Emotional Abuse: No Hx Suspected Abuse: No - Female History Patient : No Family Medical History - Family History Father Family History: No Known Living Status: Hx Family;Other: both of my parents had heart problems;Mom-ankylosing spondylitis Physical Exam - Physical Exam General Appearance: Alert, Comfortable, No apparent distress Eye Exam: bilateral normal Ears, Nose, Throat: normal ENT inspection, normal pharynx Neck: full range of motion, supple Respiratory: lungs clear, normal breath sounds, no respiratory distress, no accessory muscle use Cardiovascular/Chest: normal peripheral pulses, regular rate, rhythm, no edema Peripheral Pulses: radial,right: 2+, radial,left: 2+ Gastrointestinal/Abdominal: non tender, soft Rectal Exam: deferred Extremity: normal range of motion, no pedal edema, normal capillary refill 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 The patient is given a dose of Maalox, famotidine and Zofran here. She'll be written for Zofran for as needed use to control nausea. She will additionally be written for famotidine twice daily for the next 2 weeks to help reduce the gastritis. She can additionally chicken picker some Pepto-Bismol to take as needed for the gastritis and the diarrhea. She needs to keep herself well hydrated. She should contact her primary care doctor on Friday to see if they desire an antibiotic change. ER warnings were given. Departure - Departure Clinical Impression: Medication side effect Gastritis Qualifiers: Gastritis type: unspecified gastritis Chronicity: acute Gastritis bleeding: without bleeding Qualified Code(s): K29.00 - Acute gastritis without bleeding Diarrhea Qualifiers: Diarrhea type: unspecified type Qualified Code(s): R19.7 - Diarrhea, unspecified Disposition: Discharge to Home or Self Care Condition: Fair Departure Forms: ED Discharge - Pt. Copy, Patient Portal Self Enrollment Instructions: DI for Gastritis Diet: bland diet Activity: increase activity as tolerated Referrals: Kim Willis DO [Primary Care Provider] - 1-2 Weeks Prescriptions: Ondansetron Odt [Zofran ODT] 4 mg PO Q8HR PRN #5 tab PRN Reason: Nausea--Moderate Famotidine [Pepcid Tab] 20 mg PO BID #30 tab Home Medications: Ambulatory Orders Acyclovir [Zovirax] 400 mg PO TID 10/18/16 Pregabalin [Lyrica] 25 mg PO BID 04/25/17 Oseltamivir Capsule [Tamiflu] 75 mg PO BID 5 Days #10 capsule 06/16/18 Potassium Chloride [Klor-Con] 20 meq PO DAILY 06/16/18 Famotidine [Pepcid Tab] 20 mg PO BID #30 tab 07/12/18 Ondansetron Odt [Zofran ODT] 4 mg PO Q8HR PRN #5 tab 07/12/18 Additional Instructions: the patient's a 57-year-old female presenting with what appears to be a gastritis with some diarrhea likely made worse by the recent use of anti biotics. The patient is given a dose of Maalox, famotidine and Zofran here. She'll be written for Zofran for as needed use to control nausea. She will additionally be written for famotidine twice daily for the next 2 weeks to help reduce the gastritis. She can additionally chicken picker some Pepto-Bismol to take as needed for the gastritis and the diarrhea. She needs to keep herself well hydrated. She should contact her primary care doctor on Friday to see if they desire an antibiotic change. ER warnings were given.
[2018-07-12 01:33] VITALS: BP 105/74; TEMP 98.2; O2SAT 97
== END 2018-07-12 01:30 | disposition home or self-care (01) ==
LOC: ER 00:47
DX: K29.00 Acute gastritis without bleeding (principal); T36.8X5A Adverse effect of other systemic antibiotics, initial encounter; I48.91 Unspecified atrial fibrillation; I10 Essential (primary) hypertension; K21.9 Gastro-esophageal reflux disease without esophagitis; Z87.891 Personal history of nicotine dependence; Z79.899 Other long term (current) drug therapy; Z88.8 Allergy status to other drugs, medicaments and biological substances; Z88.5 Allergy status to narcotic agent; Z88.6 Allergy status to analgesic agent; Z88.7 Allergy status to serum and vaccine

== ENCOUNTER → 2018-11-16 | Outpatient (CLI) | payer OTHER | LOC: LAB.O 08:19 | PROVIDERS: ATTEND Family Medicine | DX: Z13.220 Encounter for screening for lipoid disorders (principal); Z13.1 Encounter for screening for diabetes mellitus; E55.9 Vitamin D deficiency, unspecified; E87.6 Hypokalemia ==

== ENCOUNTER → 2019-03-08 | Outpatient (CLI) | payer OTHER ==
--- NOTE | 2019-03-09 09:28 | US ---
EXAM DESCRIPTION: Breast,Left: Ultrasound CLINICAL HISTORY: 58 yearsFemaleUNSPECIFIED LUMP IN THE LEFT BREAST lump in the lower outer quadrant of the left breast. Patient refuses diagnostic mammogram. COMPARISON: None. TECHNIQUE: Transcutaneous scanning of the left breast utilizing caba-scale and Doppler modes. Scanning performed by the soap drier operator. FINDINGS: Ultrasound: Scanning of the lower outer quadrant of the left breast. Mostly fatty tissues with scattered fibroglandular tissues. No dominant solid mass. No distinct cyst. No parenchymal edema. No large calcifications. No overlying skin changes. IMPRESSION: BI-RADS CATEGORY: 0 - INCOMPLETE- Need additional imaging evaluation. FOLLOW-UP: Recall for additional imaging: Diagnostic digital mammography, unilateral left or bilateral.. Written communication concerning the IMPRESSION and Follow-up, will be mailed to the patient and referring health care provider. Written communication explaining the IMPRESSION and follow-up, will be mailed to the patient and referring health care provider. Electronically signed by: Cale Roman MD 03/09/2019 9:26 AM AUDIT CONTROL CLERK
== END ==
LOC: US 08:30
PROVIDERS: ATTEND Family Medicine
DX: N63.20 Unspecified lump in the left breast, unspecified quadrant (principal)

== ENCOUNTER → 2020-05-09 | Outpatient (CLI) | payer OTHER | LOC: LAB.O 08:09 | PROVIDERS: ATTEND Nurse Practitioner Family | DX: I48.91 Unspecified atrial fibrillation (principal) ==